=== PATIENT | male | born 1985 | race African-American/Black ===

== ENCOUNTER 2025-02-16 10:28 | Emergency (ER) | payer OTHER ==
[~2025-02-16] VITALS: Ht 170.1 cm; Wt 72.6 kg
[2025-02-16] MEDS ORDERED: TRELEGY ELLIPT1 EACH INH (10:52)
[2025-02-16] MEDS ORDERED: ALBUTEROL HFA 90 MCG (10:52)
[2025-02-16] MEDS ORDERED: Tdap Vaccine 0.5 ML SYR (Adult Vaccine) IM ONE (11:05)
[2025-02-16] MEDS ORDERED: Lidocaine Hydrochloride 5 ML AMP SC ONE (11:05)
== END 2025-02-16 11:54 | disposition home or self-care (01) ==
LOC: ED 10:28
DX: S61.210A Laceration without foreign body of right index finger without damage to nail, initial encounter (principal); W26.0XXA Contact with knife, initial encounter; Y93.89 Activity, other specified; Y92.89 Other specified places as the place of occurrence of the external cause; Y99.8 Other external cause status